=== PATIENT | male | born 1990 | race Two or more races ===

== ENCOUNTER 2024-02-20 00:35 | Emergency (ER) | payer OTHER ==
[~2024-02-20] VITALS: Ht 172.7 cm; Wt 77.1 kg
[2024-02-20] MEDS ORDERED: ATIVAN1 M1 (00:51)
[2024-02-20] MEDS ORDERED: KETOROLAC TROMETHAMINE 60 MG VIAL IM ONE (02:00)
[2024-02-20] MEDS ORDERED: TRIAMCINOLONE ACETONIDE 40 MG/ML VIAL IM ONE (02:00)
[2024-02-20] MEDS ORDERED: TRIAMCINOLONE ACETONIDE 40 MG/ML VIAL ONE (02:03)
[2024-02-20] MEDS ORDERED: KETOROLAC TROMETHAMINE 30 MG VIAL ONE (02:04)
[2024-02-20 02:18] LABS: ERYTHROCYTE SEDIMENTATION RATE 26 mm/hr; HEMOGLOBIN 14.5 g/dL (13-16.00); MEAN CELL VOLUME 88.6 fL (80.0-100.00); MEAN CORPUSCULAR HEMOGLOBIN 29.8 pg (27.00-32.0); MEAN CORPUSCULAR HGB CONC 33.6 g/dl (32.0-36.0); PLATELET COUNT 239 K/uL (150-450); RED BLOOD COUNT 4.85 M/uL (4.00-6.00); RED CELL DISTRIBUTION WIDTH 13.3 % (11.5-14.5)
[2024-02-20 02:36] LABS: ALBUMIN 3.2 gm/dL (3.4-5.0); BILIRUBIN TOTAL 0.35 mg/dL (0.3-1.2); CALCIUM 9.1 mg/dL (8.5-10.1); CREATININE SERUM 0.81 mg/dL (0.70-1.30); GFR 109.74; GLOBULINA 4.9 G/DL (2.4-3.5); POTASSIUM 3.78 mEq/L (3.5-5.1); TOTAL PROTEIN 8.1 gm/dL (6.4-8.2)
[2024-02-20 02:52] LABS: C-REACTIVE PROTEIN 1.33 MG/DL (0.00-0.29)
[2024-02-20] MEDS ORDERED: MEDROLPACK PO (03:08)
[2024-02-20] MEDS ORDERED: DICLOFENAC SODI75 MG PO (03:08)
== END 2024-02-20 03:41 | disposition home or self-care (01) ==
LOC: ER 00:36
PROVIDERS: General Practice
DX: M25.59 Pain in other specified joint (principal)